=== PATIENT | male | born 1995 | race Two or more races ===

== ENCOUNTER 2018-03-02 07:37 | Emergency (ER) | payer OTHER ==
[~2018-03-02] VITALS: Ht 180.3 cm; Wt 103.0 kg
[2018-03-02 07:44] VITALS: BP 135/82
[2018-03-02] MEDS ORDERED: BACITRACIN ZINC OINT 500U/GM, 0.9 GM ONE (08:12)
[2018-03-02] MEDS ORDERED: RABIES VACCINE /PF 2.5 UNITS IM-VACC ONE (08:30)
== END 2018-03-02 08:31 | disposition home or self-care (01) ==
LOC: ED 08:24
DX: S51.852D Open bite of left forearm, subsequent encounter (principal); Z20.3 Contact with and (suspected) exposure to rabies
CPT/HCPCS: 90471; 90675

== ENCOUNTER 2018-03-06 05:50 | Emergency (ER) | payer OTHER ==
[~2018-03-06] VITALS: Ht 180.3 cm; Wt 103.1 kg
[2018-03-06 05:57] VITALS: BP 124/84
[2018-03-06] MEDS ORDERED: RABIES VACCINE /PF 2.5 UNITS IM-VACC ONE (06:30)
== END 2018-03-06 06:48 | disposition home or self-care (01) ==
LOC: ED 06:41
DX: Z23 Encounter for immunization (principal); S51.052D Open bite, left elbow, subsequent encounter; W54.0XXD Bitten by dog, subsequent encounter
CPT/HCPCS: 90471; 90675; 99283

== ENCOUNTER 2018-03-13 19:42 | Emergency (ER) | payer OTHER ==
[~2018-03-13] VITALS: Ht 175.3 cm; Wt 103.7 kg
[2018-03-13 20:03] VITALS: BP 154/74
[2018-03-13] MEDS ORDERED: RABIES VACCINE /PF 2.5 UNITS IM-VACC ONE (20:30)
== END 2018-03-13 21:34 | disposition home or self-care (01) ==
LOC: ED 21:00
DX: S51.052D Open bite, left elbow, subsequent encounter (principal); W54.0XXD Bitten by dog, subsequent encounter; Z20.3 Contact with and (suspected) exposure to rabies
CPT/HCPCS: 90471; 90675